=== PATIENT | female | born 1995 ===

== ENCOUNTER → 2020-03-30 | Outpatient (CLI) | payer OTHER ==
[~2020-03-30] MED LIST: IBU600 MG PO; IRON TABLETS325 MG PO; NORCO 325 MG-51 TAB PO
== END ==
LOC: ZCOL.LAB 08:00
DX: Z20.828 Contact with and (suspected) exposure to other viral communicable diseases (principal)

== ENCOUNTER 2020-05-05 06:07 | Inpatient (IN) | payer OTHER ==
[~2020-05-05] VITALS: Ht 160 cm; Wt 80.5 kg
[2020-05-05] VITALS (19 sets, daily range): BP systolic 95–139; BP diastolic 61–81; PULSE 57–99; TEMP 97.3–98.7
[2020-05-05] MEDS ORDERED: IRON TABLETS325 MG PO (06:51)
--- NOTE | 2020-05-05 07:11 | NUR ---
PT HERE FOR REPEAT . HAS HX OF BABY THAT WAS 9#14 OZ. FHT'S FOUND IN THE 125 RANGE WITH MODERATE VARIABILITY AND ACCELS. IV STARTED IN LEFT HAND WITH LR INFUSING WITHOUT DIFFICULTY. PLAN OF CARE REVIEWED WITH PT AND . ASSESSMENT COMPLETED. CONSENTS SIGNED.
[2020-05-05 07:36] LABS: BASO % 0.4 % (0.0-2.0); EOS # 0.1 (0.0-0.7); EOS % 0.9 % (0-4.0); GRAN # 6.4 (1.4-6.5); GRAN % 70.5 % (42.2-75.2); HEMATOCRIT 39.6 % (37.0-47.0); HEMOGLOBIN 13.8 g/dl (12.5-16.0); LYMPH # 1.7 (1.2-3.4); LYMPH % 18.4 % (20.0-51.0); MEAN CELL VOLUME 94 fl (80.0-100.0); MEAN CORPUSCULAR HEMOGLOBIN 33 pg (27.0-31.0); MEAN CORPUSCULAR HGB CONC 35 g/dl (33.0-37.0); MEAN PLATELET VOLUME 10.5 fl (7.4-10.4); MONO # 0.8 (0.1-0.6); MONO % 8.7 % (1.7-9.3); PLATELET COUNT 143 K/mm3 (130-400); REDCELL DISTRIBUTION WIDTH-CV 13.8 % (11.5-14.5)
--- NOTE | 2020-05-05 08:25 | NUR ---
PT AMBULATES TO SUITE WITH AND THIS RN. PT SITS ON EDGE OF BED FOR SPINAL PLACEMENT BY José MURRAY CRNA. PT POSITIONED AFTER SPINAL WITH WEDGE UNDER RIGHT HIP. FHT'S 131. CAUTERY PAD TO RIGHT HIP. REYES CATHETER PLACED WITH PALE YELLOW URINE RETURNED. SAFETY STRAP ACROSS BOTH THIGHS. DR SALAZAR PREPS ABDOMEN WITH DURAPREP. DELIVERY OF MALE BY DR SALAZAR AND DR BONNER AT 0812. EXPRESSED DELIVERY OF PLACENTA AT 0813
--- NOTE | 2020-05-05 08:55 | NUR ---
PT TO PACU AFTER DISCHARGE FROM OPERATING ROOM. PT AWAKE AND ALERT. ABLE TO MOVE UPPER EXTREMITIES. ASSESSMENT COMPLETED. REPORTS NO PAIN. FUNDUS FIRM. SOFTBALL SIZE CLOT EXPRESSED. NO FREE FLOW BLEEDING OBSERVED
--- NOTE | 2020-05-05 09:15 | NUR ---
ZOFRAN 4MG GIVEN AT 0913 FOR NAUSEA.
--- NOTE | 2020-05-05 09:30 | NUR ---
TO ROOM AFTER DISCHARGE FROM PACU. NAUSEATED AGAIN AND VOMITING. WILL TRY SOME WATER AND SPRITE.
--- NOTE | 2020-05-05 10:00 | NUR ---
NAUSEA IS SLIGHTLY BETTER.
[2020-05-06 02:00] VITALS: BP 101/66; PULSE 78; TEMP 97.8
[2020-05-06 08:15] VITALS: BP 118/70; PULSE 84; TEMP 97.5
[2020-05-06] MEDS ORDERED: NORCO 325 MG-51 TAB PO (08:42)
[2020-05-06] MEDS ORDERED: IBU600 MG PO (08:42)
--- NOTE | 2020-05-06 09:11 | NUR ---
Initial visit attempt; Nurse with patient . Rock Room Worker left card of congratulations for the of their son and information regarding the availability of spiritual care at [facility].
[2020-05-06 16:20] VITALS: BP 116/69; PULSE 71; TEMP 97.9
[2020-05-06 20:15] VITALS: BP 135/80; PULSE 74; TEMP 98.9
[2020-05-07 07:24] VITALS: BP 106/69; PULSE 87; TEMP 98.1
[2020-05-07 16:27] VITALS: BP 131/71; PULSE 80; TEMP 98.2
[2020-05-07 20:30] VITALS: BP 145/85; PULSE 80; TEMP 97.9
[2020-05-08 07:30] VITALS: BP 122/75; PULSE 82; TEMP 97.9
--- NOTE | 2020-05-08 13:02 | NUR ---
1230 DISCHARGE INSTRUCTIONS REVIEWED WITH PATIENT. PATIENT VERBALIZED UNDERSTANDING. 1245 ALL PERSONAL BELONGINGS GATHERED FROM PATIENT ROOM. PATIENT LEFT AMBULATORY AND IN NO APPARENT DISTRESS. PATIENT ACCOMPANIED BY SPOUSE AND THIS RN.
== END 2020-05-08 12:45 | disposition home or self-care (01) | DRG 788 ==
LOC: LDRO 06:07 → OB 06:08
PROVIDERS: ADMIT Obstetrics & Gynecology
PROC: 10D00Z1 Extraction of Products of Conception, Low, Open Approach (ICD-10-PCS; principal; 2020-05-05)
DX: O34.211 Maternal care for low transverse scar from previous cesarean delivery (principal); O36.63X0 Maternal care for excessive fetal growth, third trimester, not applicable or unspecified; Z3A.39 39 weeks gestation of pregnancy; O99.02 Anemia complicating childbirth; D64.9 Anemia, unspecified; Z37.0 Single live birth
CPT/HCPCS: J0690; J1885; J2370; J2405; J2590; J3010; J7120